=== PATIENT | male | born 1945 | race Caucasian/White ===

== ENCOUNTER 2019-02-06 20:34 | Emergency (ER) | payer OTHER ==
[2019-02-06 20:44] VITALS: RESP 18
[2019-02-06] MEDS ORDERED: MORPHINE SULFATE 4 MG/ML SYRINGE IVP STA ×2 (21:01→22:16)
[2019-02-06] MEDS ORDERED: SODIUM CHLORIDE 0.9% 1,000 ML IV ONE (21:01)
[2019-02-06] MEDS ORDERED: SODIUM CHLORIDE 0.9% 1,000 ML IV SCH (21:15)
--- NOTE | 2019-02-06 21:19 | ED ---
Abdominal Pain HPI - General Chief Complaint: Abdominal Pain Stated Complaint: Abd pain Time Seen by Provider: 02/06/19 20:52 Source: patient, family Mode of arrival: ambulatory Limitations: no limitations - History of Present Illness Initial Comments: Patient is a 73-year-old male presenting for abdominal pain. The patient states that he had a Whipple procedure about 6 years ago secondary to pancreatic Cancer. He started having diffuse abdominal tenderness yesterday which is been constant. He is unable to describe and states that there is no radiation or modifying factors. Had 2 episodes of nausea and vomiting today but no diarrhea. He also denies any fevers or chills. He denies any urinary symptoms. - Related Data Previous Rx's Medication Instructions Recorded Morphine Sulfate 15 mg PO Q6H 3 Days #12 tab 02/07/19 Allergies Allergy/AdvReac Type Severity Reaction Status Date / Time codeine Allergy Swelling Verified 02/06/19 21:31 hydromorphone [From Dilaudid] Allergy Swelling Verified 02/06/19 21:31 Penicillins Allergy Swelling Verified 02/06/19 21:31 Review of Systems ROS Statement: Those systems with pertinent positive or pertinent negative responses have been documented in the HPI. Constitutional: Negative for chills, fatigue and fever. HENT: Negative for congestion. Respiratory: Negative for chest tightness, shortness of breath and wheezing. Negative for cough Cardiovascular: Negative for chest pain and palpitations. Gastrointestinal: Positive for abdominal pain. Negative for abdominal distention, diarrhea, positive for nausea and vomiting. Genitourinary: Negative for dysuria. Musculoskeletal: Negative for back pain, neck pain and neck stiffness. Skin: Negative for color change. Neurological: Negative for dizziness, speech difficulty, weakness and light- headedness. Psychiatric/Behavioral: Negative for agitation and confusion. Negative for anxiety ROS Other: All systems not noted in ROS Statement are negative. Past Medical History Past Medical History: Cancer Additional Past Medical History / Comment(s): Pancreatic CA History of Any Multi-Drug Resistant Organisms: None Reported Past Surgical History: Cholecystectomy, Hernia Repair Additional Past Surgical History / Comment(s): whipple surgery Past Psychological History: No Psychological Hx Reported Smoking Status: Current every day smoker Past Alcohol Use History: None Reported Past Drug Use History: Marijuana General Exam - General Exam Comments Initial Comments: Constitutional: Pt appears well-developed and well-nourished. No distress. Head: Normocephalic and atraumatic. Eyes: EOM are normal. Neck: Normal range of motion. Neck supple. Cardiovascular: Normal rate, regular rhythm, S1 normal, S2 normal and normal heart sounds. Exam reveals no gallop and no friction rub. No murmur heard. Pulmonary/Chest: Effort normal and breath sounds normal. No tachypnea and no b radypnea. No respiratory distress. No wheezes or rales noted. Abdominal: Soft. Bowel sounds are normal. Pt exhibits no shifting dullness, no distension, no pulsatile liver, no fluid wave, no abdominal bruit and no ascites. There is mild rigidity, no rebound, no guarding, no tenderness at McBurney's point and negative Gonzáles's sign. There is diffuse abdominal tenderness Musculoskeletal: Normal range of motion. Neurological: Pt is alert and oriented to person, place, and time. No cranial nerve deficit. Skin: Skin is warm and dry. No rash noted. Pt is not diaphoretic. No erythema. No pallor. Psychiatric: Pt has a normal mood and affect. Pt behavior is normal. Thought content normal. Limitations: no limitations Course Vital Signs 02/06/19 02/06/19 02/06/19 20:37 22:01 23:01 Temperature 98.0 F Pulse Rate 70 61 65 Respiratory 18 18 18 Rate Blood Pressure 127/89 190/103 152/98 O2 Sat by Pulse 96 100 97 Oximetry Medical Decision Making - Medical Decision Making Laboratory studies showed that there was no significant electrolyte derangements, leukocytosis and lactic acid was within normal limits. There is also no evidence of pancreatitis or transaminitis. CT of the abdomen was performed and showed pneumobilia of the left hepatic lobe and significantly distended fluid-filled stomach. There was nonspecific fluid-filled nondilated loops of small bowel but no evidence of mechanical obstruction. These results were discussed with the patient and the patient stated that he was very aware of his dilated stomach and that he has gastroparesis. He states that he has had this managed very specifically in the past with oral morphine given by his GI doctor. He states that this is the typical course for him. Nonetheless, observation was offered to the patient and he currently declined and stated that this is very routine for him and that he would like to be discharged. At the time of disposition, the patient was very well-appearing with vital signs within normal limits. There is no evidence of emergent pathology as well. Patient was counseled to return to emergency Department symptoms worsened and he stated that he would. - Lab Data Result diagrams: 02/06/19 21:23 02/06/19 21:23 Lab Results 02/06/19 02/06/19 02/06/19 Range/Units 21:23 21:23 21:23 WBC 8.5 (3.8-10.6) k/uL RBC 4.56 (4.30-5.90) m/uL Hgb 13.6 (13.0-17.5) gm/dL Hct 42.0 (39.0-53.0) % MCV 92.1 (80.0-100.0) fL MCH 29.7 (25.0-35.0) pg MCHC 32.3 (31.0-37.0) g/dL RDW 13.7 (11.5-15.5) % Plt Count 258 (150-450) k/uL Neutrophils % 78 % Lymphocytes % 13 % Monocytes % 6 % Eosinophils % 1 % Basophils % 0 % Neutrophils # 6.6 (1.3-7.7) k/uL Lymphocytes # 1.1 (1.0-4.8) k/uL Monocytes # 0.5 (0-1.0) k/uL Eosinophils # 0.1 (0-0.7) k/uL Basophils # 0.0 (0-0.2) k/uL Sodium 139 (137-145) mmol/L Potassium 4.7 (3.5-5.1) mmol/L Chloride 96 L (98-107) mmol/L Carbon Dioxide 34 H (22-30) mmol/L Anion Gap 9 mmol/L BUN 20 (9-20) mg/dL Creatinine 1.19 (0.66-1.25) mg/dL Est GFR (CKD-EPI)AfAm 71 (>60 ml/min/1.73 sqM) Est GFR (CKD-EPI)NonAf 61 (>60 ml/min/1.73 sqM) Glucose 109 H (74-99) mg/dL Plasma Lactic Acid Darian 1.3 (0.7-2.0) mmol/L Calcium 10.1 (8.4-10.2) mg/dL Magnesium 2.2 (1.6-2.3) mg/dL Total Bilirubin 0.7 (0.2-1.3) mg/dL AST 34 (17-59) U/L ALT 36 (21-72) U/L Alkaline Phosphatase 178 H (38-126) U/L Total Protein 7.1 (6.3-8.2) g/dL Albumin 4.4 (3.5-5.0) g/dL Lipase 13 L (23-300) U/L - EKG Data EKG Comments: EKG shows normal sinus rhythm with a rate of 64 bpm, DE interval 124, QRS 102, QTC 447. There are no significant ST depressions or elevations noted. Disposition Clinical Impression: Gastric distention, Abdominal pain Disposition: HOME SELF-CARE Condition: Good Instructions (If sedation given, give patient instructions): Abdominal Pain (ED) Prescriptions: Morphine Sulfate 15 mg PO Q6H 3 Days #12 tab Is patient prescribed a controlled substance at d/c from ED?: Yes When asked, does pt state using other controlled substances?: No If prescribed controlled substance>3 days was MAPS reviewed?: Prescribed <3 Days If opioid is for acute pain is fill amount 7 days or less?: Yes If Rx opioid, was Start Talking consent form obtained?: Yes Referrals: None,Stated [Primary Care Provider] - 1-2 days Time of Disposition: 00:00
[2019-02-06 21:45] LABS: Basophils % (A) 0 %; Eosinophils # (A) 0.1 k/uL (0-0.7); Eosinophils % (A) 1 %; HGB 13.6 gm/dL (13.0-17.5); Lymphocytes # (A) 1.1 k/uL (1.0-4.8); Lymphocytes % (A) 13 %; MCH 29.7 pg (25.0-35.0); MCHC 32.3 g/dL (31.0-37.0); MCV 92.1 fL (80.0-100.0); Mean Platelet Volume 6.9; Monocytes # (A) 0.5 k/uL (0-1.0); Monocytes % (A) 6 %; Neutrophils # (A) 6.6 k/uL (1.3-7.7); Neutrophils % (A) 78 %; Platelet Count 258 k/uL (150-450); RBC 4.56 m/uL (4.30-5.90); RDW 13.7 % (11.5-15.5); WBC 8.5 k/uL (3.8-10.6)
[2019-02-06 22:07] LABS: Albumin 4.4 g/dL (3.5-5.0); Calcium 10.1 mg/dL (8.4-10.2); Magnesium 2.2 mg/dL (1.6-2.3); Potassium 4.7 mmol/L (3.5-5.1); Total Bilirubin 0.7 mg/dL (0.2-1.3); Total Protein 7.1 g/dL (6.3-8.2)
[2019-02-06 23:02] VITALS: PULSE 65
--- NOTE | 2019-02-06 23:42 | CT ---
EXAM: CT Abdomen and Pelvis With Intravenous Contrast CLINICAL HISTORY: ITS.REASON CT Reason: abdominal pain history of pancreatic cancer TECHNIQUE: Axial computed tomography images of the abdomen and pelvis with intravenous contrast. CTDI is 14.5 mGy and DLP is 630 mGy-cm. This CT exam was performed using one or more of the following dose reduction techniques: automated exposure control, adjustment of the mA and/or kV according to patient size, and/or use of iterative reconstruction technique. COMPARISON: No relevant prior studies available. FINDINGS: Limitations: Limited exam given lack of intraperitoneal fat and oral contrast. Lung bases: Unremarkable. No mass. No consolidation. ABDOMEN: Liver: Unremarkable. No mass. Gallbladder and bile ducts: Pneumobilia in the left hepatic lobe. No calcified stones. No ductal dilation. Pancreas: Evidence of prior Whipple procedure. There is gas in the region of the jere hepatis and pancreatic body. Pancreatic duct dilation as well as pancreatic calcifications. Spleen: Unremarkable. No splenomegaly. Adrenals: Unremarkable. No mass. Kidneys and ureters: Unremarkable. No solid mass. No hydronephrosis. Stomach and bowel: Significant only distended stomach. There are nondilated fluid-filled loops of small bowel. Moderate stool throughout the colon. No mucosal thickening. PELVIS: Appendix: No findings to suggest acute appendicitis. Bladder: Unremarkable. No mass. Reproductive: Unremarkable as visualized. ABDOMEN and PELVIS: Intraperitoneal space: Small amount of free fluid in the pelvic cul-de- sac. Bones/joints: No acute fracture. No dislocation. Soft tissues: See above. Vasculature: Extensive atherosclerosis of the abdominal aorta and its major branches. The abdominal aorta is ectatic. Lymph nodes: Unremarkable. No enlarged lymph nodes. IMPRESSION: Evidence of a prior Whipple procedure. There is pneumobilia in the left hepatic lobe, N/V region of the jere hepatis, and pancreatic body. The residual pancreatic tissue demonstrates duct dilation and parenchymal calcification. Diffuse mesenteric edema. Significantly distended fluid-filled stomach. Additionally, there are nonspecific fluid-filled nondilated loops of small bowel. Consider gastroenteritis. No evidence of a mechanical obstruction.
[2019-02-07 00:16] VITALS: BP 159/99; TEMP 99.7
== END 2019-02-07 00:14 | disposition home or self-care (01) ==
LOC: EC 20:34
DX: R14.0 Abdominal distension (gaseous) (principal); R10.84 Generalized abdominal pain; R11.2 Nausea with vomiting, unspecified; K76.89 Other specified diseases of liver; F17.200 Nicotine dependence, unspecified, uncomplicated; Z88.0 Allergy status to penicillin; Z88.5 Allergy status to narcotic agent; Z85.07 Personal history of malignant neoplasm of pancreas; Z87.19 Personal history of other diseases of the digestive system; Z90.49 Acquired absence of other specified parts of digestive tract; Z53.20 Procedure and treatment not carried out because of patient's decision for unspecified reasons
CPT/HCPCS: 99284; 96374; 96376; 96361 ×3; 36415; 93005; 80053; 83605; 83690; 83735; 85025; 74177; J2270; Q9967

== ENCOUNTER 2019-10-02 11:55 | Inpatient (IN) | payer MEDICARE, OTHER ==
[2019-10-02] MEDS ORDERED: SODIUM CHLORIDE 0.9% 1,000 ML IV STA (12:03)
[2019-10-02] MEDS ORDERED: MORPHINE SULFATE 4 MG/ML SYRINGE IV STA (12:03)
[2019-10-02] MEDS ORDERED: ONDANSETRON 4 MG/2 ML VIAL IVP STA (12:03)
[2019-10-02] MEDS ORDERED: PANTOPRAZOLE 40 MG/10 ML VIAL IVP STA (12:04)
--- NOTE | 2019-10-02 12:22 | ED ---
General Adult HPI - General Chief complaint: GI Bleed Stated complaint: Vomiting blood Time Seen by Provider: 10/02/19 11:58 Source: patient, EMS, RN notes reviewed, old records reviewed Mode of arrival: EMS Limitations: no limitations - History of Present Illness Initial comments: 74-year-old male history of pancreatic cancer and with the procedure presenting with 4 days of nausea vomiting and loose stools. Patient states he has episodes similar to this several times a year since his surgery. He reports multiple episodes of vomiting and that he had some dark coffee-ground emesis associated with several episodes of vomiting. Denies melena. He has intermittent crampy abdominal pain which is generalized. He states all symptoms are typical of the chronic issues he's had for several years. Denies fever or chills. Denies chest pain or dyspnea. - Related Data Previous Rx's Medication Instructions Recorded Morphine Sulfate 15 mg PO Q6H 3 Days #12 tab 02/07/19 Allergies Allergy/AdvReac Type Severity Reaction Status Date / Time codeine Allergy Swelling Verified 10/02/19 12:04 hydromorphone [From Dilaudid] Allergy Swelling Verified 10/02/19 12:04 Penicillins Allergy Swelling Verified 10/02/19 12:04 Review of Systems ROS Statement: Those systems with pertinent positive or pertinent negative responses have been documented in the HPI. ROS Other: All systems not noted in ROS Statement are negative. Past Medical History Past Medical History: Cancer Additional Past Medical History / Comment(s): Pancreatic CA History of Any Multi-Drug Resistant Organisms: None Reported Past Surgical History: Cholecystectomy, Hernia Repair Additional Past Surgical History / Comment(s): whipple surgery Past Psychological History: No Psychological Hx Reported Smoking Status: Current every day smoker Past Alcohol Use History: None Reported Past Drug Use History: Marijuana General Exam Limitations: no limitations General appearance: alert, in no apparent distress Head exam: Present: atraumatic, normocephalic Eye exam: Present: normal appearance, PERRL ENT exam: Present: mucous membranes dry Neck exam: Present: normal inspection. Absent: tenderness, meningismus Respiratory exam: Present: normal lung sounds bilaterally. Absent: respiratory distress Cardiovascular Exam: Present: regular rate, normal rhythm GI/Abdominal exam: Present: soft, tenderness, guarding. Absent: distended, rebound Extremities exam: Present: normal inspection, normal capillary refill. Absent: pedal edema Neurological exam: Present: alert, oriented X3 Psychiatric exam: Present: normal affect, normal mood Skin exam: Present: warm, dry, intact. Absent: cyanosis, diaphoretic Course Vital Signs 10/02/19 12:05 Temperature 96.9 F L Pulse Rate 60 Respiratory 18 Rate Blood Pressure 134/78 O2 Sat by Pulse 99 Oximetry EKG Findings - EKG Comments: EKG Findings:: EKG: Normal sinus rhythm, rate of 61, DE interval 114, QRS duration 84, QTC 444, no ST segment elevation Medical Decision Making - Medical Decision Making 74-year-old male with nausea vomiting, abdominal pain and concern for hematemesis. Patient has stable vitals, he has a tender abdomen specifically in the epigastrium. Given his previous surgical history, CT is performed, shows i nflammation in the gastric antrum, concern for peptic ulcer disease and inflammation. There is pneumobilia which is stable from previous CT. Patient's started on Protonix, and given symptomatic treatment. He has a stable hemoglobin. He has creatinine 1.72 which is elevated likely secondary to de hydration. He will be admitted for continued treatment of upper gastrointestinal bleed, intractable nausea vomiting, and symptomatic treatment. Case is discussed with Dr. Monae who will accept admission. GI placed on consult. - Lab Data Result diagrams: 10/02/19 12:11 10/02/19 12:11 Lab Results 10/02/19 10/02/19 10/02/19 Range/Units 12:11 12:11 12:11 WBC 5.8 (3.8-10.6) k/uL RBC 4.40 (4.30-5.90) m/uL Hgb 13.7 (13.0-17.5) gm/dL Hct 40.5 (39.0-53.0) % MCV 92.0 (80.0-100.0) fL MCH 31.1 (25.0-35.0) pg MCHC 33.7 (31.0-37.0) g/dL RDW 13.1 (11.5-15.5) % Plt Count 186 (150-450) k/uL Neutrophils % 82 % Lymphocytes % 10 % Monocytes % 6 % Eosinophils % 1 % Basophils % 0 % Neutrophils # 4.7 (1.3-7.7) k/uL Lymphocytes # 0.6 L (1.0-4.8) k/uL Monocytes # 0.4 (0-1.0) k/uL Eosinophils # 0.1 (0-0.7) k/uL Basophils # 0.0 (0-0.2) k/uL PT (9.0-12.0) sec INR (<1.2) APTT (22.0-30.0) sec Sodium 136 L (137-145) mmol/L Potassium 4.5 (3.5-5.1) mmol/L Chloride 99 (98-107) mmol/L Carbon Dioxide 23 (22-30) mmol/L Anion Gap 14 mmol/L BUN 30 H (9-20) mg/dL Creatinine 1.72 H (0.66-1.25) mg/dL Est GFR (CKD-EPI)AfAm 45 (>60 ml/min/1.73 sqM) Est GFR (CKD-EPI)NonAf 39 (>60 ml/min/1.73 sqM) Glucose 140 H (74-99) mg/dL Plasma Lactic Acid Darian (0.7-2.0) mmol/L Calcium 9.4 (8.4-10.2) mg/dL Total Bilirubin 0.9 (0.2-1.3) mg/dL AST 30 (17-59) U/L ALT 18 (4-49) U/L Alkaline Phosphatase 140 H (38-126) U/L Total Protein 7.0 (6.3-8.2) g/dL Albumin 4.2 (3.5-5.0) g/dL Amylase 31 (30-110) U/L Lipase 13 L (23-300) U/L Blood Type A Negative Blood Type Recheck No Previous Record Bld Type Recheck Status CABO Indicated Antibody Screen NEGATIVE Spec Expiration Date 10/05/2019 - 231010/02/19 10/02/19 Range/Units 12:11 12:11 WBC (3.8-10.6) k/uL RBC (4.30-5.90) m/uL Hgb (13.0-17.5) gm/dL Hct (39.0-53.0) % MCV (80.0-100.0) fL MCH (25.0-35.0) pg MCHC (31.0-37.0) g/dL RDW (11.5-15.5) % Plt Count (150-450) k/uL Neutrophils % % Lymphocytes % % Monocytes % % Eosinophils % % Basophils % % Neutrophils # (1.3-7.7) k/uL Lymphocytes # (1.0-4.8) k/uL Monocytes # (0-1.0) k/uL Eosinophils # (0-0.7) k/uL Basophils # (0-0.2) k/uL PT 11.2 (9.0-12.0) sec INR 1.1 (<1.2) APTT 24.3 (22.0-30.0) sec Sodium (137-145) mmol/L Potassium (3.5-5.1) mmol/L Chloride (98-107) mmol/L Carbon Dioxide (22-30) mmol/L Anion Gap mmol/L BUN (9-20) mg/dL Creatinine (0.66-1.25) mg/dL Est GFR (CKD-EPI)AfAm (>60 ml/min/1.73 sqM) Est GFR (CKD-EPI)NonAf (>60 ml/min/1.73 sqM) Glucose (74-99) mg/dL Plasma Lactic Acid Darian 1.9 (0.7-2.0) mmol/L Calcium (8.4-10.2) mg/dL Total Bilirubin (0.2-1.3) mg/dL AST (17-59) U/L ALT (4-49) U/L Alkaline Phosphatase (38-126) U/L Total Protein (6.3-8.2) g/dL Albumin (3.5-5.0) g/dL Amylase (30-110) U/L Lipase (23-300) U/L Blood Type Blood Type Recheck Bld Type Recheck Status Antibody Screen Spec Expiration Date Disposition Clinical Impression: Gastritis, Peptic ulcer, MIRNA (acute kidney injury) Disposition: [facility] Condition: Stable Is patient prescribed a controlled substance at d/c from ED?: No Referrals: [facility]inic [Primary Care Provider] - 1-2 days Decision to Admit Reason: Admit from EC Decision Date: 10/02/19 Decision Time: 13:53
[2019-10-02 12:27] LABS: Basophils % (A) 0 %; Eosinophils # (A) 0.1 k/uL (0-0.7); Eosinophils % (A) 1 %; HCT 40.5 % (39.0-53.0); HGB 13.7 gm/dL (13.0-17.5); Lymphocytes # (A) 0.6 k/uL (1.0-4.8); Lymphocytes % (A) 10 %; MCH 31.1 pg (25.0-35.0); MCHC 33.7 g/dL (31.0-37.0); Mean Platelet Volume 7.6; Monocytes # (A) 0.4 k/uL (0-1.0); Monocytes % (A) 6 %; Neutrophils # (A) 4.7 k/uL (1.3-7.7); Neutrophils % (A) 82 %; Platelet Count 186 k/uL (150-450); RDW 13.1 % (11.5-15.5); WBC 5.8 k/uL (3.8-10.6)
[2019-10-02 12:31] LABS: Albumin 4.2 g/dL (3.5-5.0); Calcium 9.4 mg/dL (8.4-10.2); Potassium 4.5 mmol/L (3.5-5.1); Total Bilirubin 0.9 mg/dL (0.2-1.3)
[2019-10-02 12:32] LABS: INR 1.1 (<1.2); Partial Thromboplastin Time 24.3 sec (22.0-30.0); Prothrombin Time 11.2 sec (9.0-12.0)
--- NOTE | 2019-10-02 13:34 | CT ---
EXAMINATION TYPE: CT abdomen pelvis wo con DATE OF EXAM: 10/02/2019 COMPARISON: 02/06/2019 HISTORY: vOMITTING BLOOD CT DLP: 324.1 mGycm Automated exposure control for dose reduction was used. TECHNIQUE: Helical acquisition of images was performed from the lung bases through the pelvis. FINDINGS: LUNG BASES: To 3 mm pulmonary nodules in the anterior segment of the right upper lobe. Trace of peric ardial fluid is noted.. LIVER/GB: Air within the liver is stable from the prior exam and suggestive of pneumobilia. Correlate for previous cholecystectomy. PANCREAS: Findings suggest prior Whipple procedure. Residual pancreatic calcifications are seen as we ll as duct dilation some are the prior study.. SPLEEN: No significant abnormality is seen. ADRENALS: Nonspecific thickening of the adrenal glands greater on the left.. KIDNEYS: No hydronephrosis. Punctate hilar calcifications could be vascular although tiny renal stone excluded.. ADENOPATHY: Limited assessment for adenopathy due to reduced amount of intraperitoneal fat and lack of contrast. OSSEOUS STRUCTURES: Hypertrophic and degenerative changes spine noted. Chronic rib fractures on the left incidentally noted. Hypertrophic and degenerative change of the spine. Abnormal attenuation the femoral heads can be associated with early osteonecrosis. There is abnormal appearance including ero sive bony inferior endplate of L1. This could been the basis of a inferior endplate compression fract ure or acute Schmorl's node. Infectious etiology including osteomyelitis or discitis and metastasis i n the differential diagnosis. This is new from the prior CT scan. Suspect multilevel canal stenosis w ith disc bulging and hypertrophic changes of the vertebral column. BOWEL: The stomach is markedly distended and appears to contain debris some of which is hyperdense m ay represent hemorrhage. Wall thickening near the gastric antrum suspected. Cannot exclude a gastric outlet obstruction. There appears to be inflammatory change near the region of the gastroduodenal gabriele ction. Correlate for mass versus peptic ulcer disease. Overall bowel gas pattern nonspecific. OTHER: Vascular calcifications are seen and there is ectasia of the abdominal aorta with a maximal di mension of 2.9 cm. Cannot exclude a degree of omental thickening on image 30. IMPRESSION: 1. Gastric distention with thickening of the gastric wall particularly at the level gastric antrum an d proximal duodenum. Correlate for peptic ulcer disease. Mild amount of induration of the fat sugge sting acute inflammatory change. Neoplastic process not excluded. Hyperdensity within the stomach may represent retained debris versus a small amount of hemorrhage. 2. There is stable appearance of air within the left lobe of the liver most likely on the basis of pn eumobilia. 3. There is been interval development of a deformity involving the inferior endplate of L1 relative t o the exam of 02/06/2019. This demonstrates possible sclerosis or erosion. Differential diagnosis would include recent Schmorl's node, atypical inferior endplate compression fracture and osteomyelitis wit h discitis. Recommend follow-up MRI. 4. Sclerosis involving the head of the femur bilaterally is highly suggestive of osteonecrosis. 5. Correlate for previous Whipple procedure. 6. Assessment for adenopathy is nondiagnostic due to reduced amount of intraperitoneal fat and lack o f oral and IV contrast..
[2019-10-02] MEDS ORDERED: ONDANSETRON 4 MG/2 ML VIAL IVP PRN (13:50)
[2019-10-02] MEDS ORDERED: MORPHINE SULFATE 4 MG/ML SYRINGE IV PRN (13:50)
[2019-10-02] MEDS ORDERED: NALOXONE 0.4 MG/ML 1 ML VIAL IV PRN (13:50)
[2019-10-02] MEDS ORDERED: LIDOCAINE 5% PATCH TOPICAL PRN (18:50)
[2019-10-02] MEDS ORDERED: BACLOFEN 10 MG TAB PO PRN (18:50)
[2019-10-02] MEDS ORDERED: ACETAMINOPHEN TAB 500 MG TAB PO PRN (18:52)
[2019-10-02] MEDS ORDERED: ALPRAZolam 0.25 MG TAB PO PRN (18:52)
[2019-10-02] MEDS ORDERED: TEMAZEPAM 15 MG CAP PO PRN (18:52)
[2019-10-02] MEDS: PRAZOSIN 1 MG CAP PO SCH (20:13)
[2019-10-02] MEDS: SODIUM CHLORIDE 0.9% 1,000 ML IV SCH (20:13)
[2019-10-02 20:34] LABS: Albumin 3.6 g/dL (3.5-5.0); Calcium 8.8 mg/dL (8.4-10.2); Potassium 4.4 mmol/L (3.5-5.1); Total Bilirubin 0.8 mg/dL (0.2-1.3); Total Protein 6.1 g/dL (6.3-8.2)
[2019-10-02] MEDS: PANTOPRAZOLE 40 MG/10 ML VIAL IVP SCH (20:56)
--- NOTE | 2019-10-02 22:29 | HP ---
HISTORY AND PHYSICAL DATE OF SERVICE: 10/02/2019 CHIEF COMPLAINT: GI bleed. HISTORY OF PRESENT ILLNESS: This 74-year-old gentleman with a past medical history of multiple medical problems including a history of pancreatic cancer, history of cholecystectomy, history of hernia repair, being followed by Dr. Chandra in the outpatient was admitted with 4 days of nausea, vomiting, and loose stools. The patient also had coffee-ground emesis and the patient had Whipple's procedure about 5 years ago. Because of multiple symptomatology, patient came to [facility] and was admitted for further evaluation and treatment. Patient was found to be dehydrated with features of renal failure 1.72. The patient also underwent a CT scan of the abdomen and pelvis which was done in the ER which showed gastric distention and thickening, possibly peptic ulcer disease and also stable appearance of the left lobe of the liver with pneumobilia, deformity involving the L1 was noted and multiple other findings also noted. There is no history of fever, rigors or chills. No history of headache, loss of consciousness, seizures. PAST MEDICAL HISTORY: History of pancreatic cancer, Whipple's procedure, cholecystectomy, hernia repair. MEDICATIONS ARE: 1. Lamictal 200 mg p.o. daily. 2. Effexor XR 150 mg p.o. daily. 3. Sildenafil 100 mg daily p.r.n. 4. Prazosin 4 mg q.h.s. 5. Morphine sulfate 50 mg q.6 p.r.n. 6. Creon 120,000 p.o. q.a.c. and q.h.s. 7. Lidoderm. 8. Lioresal 10 mg p.o. t.i.d. p.r.n. ALLERGIES: CODEINE, DILAUDID, PENICILLIN. FAMILY HISTORY: No history of heart disease, strokes in the family. SOCIAL HISTORY: History of smoking. History of THC. REVIEW OF SYSTEMS: ENT diminished vision. Diminished hearing. CARDIOVASCULAR: No angina or palpitations. RESPIRATION: No cough. GI as mentioned earlier. : No dysuria. CENTRAL NERVOUS SYSTEM: No numbness or weakness. ALLERGY/IMMUNOLOGY: No asthma or hayfever. MUSCULOSKELETAL as mentioned earlier. HEMATOLOGY/ONCOLOGY: No history of anemia. NEUROLOGY as mentioned earlier. ENDOCRINE: No history of diabetes or hypothyroidism. CONSTITUTIONAL: As mentioned earlier. DERMATOLOGY negative. RHEUMATOLOGY: Negative. PSYCHIATRIC: As mentioned earlier. PHYSICAL EXAMINATION: Alert and oriented x3. Pulse 60. Blood pressure 133/78, respiration 18, temperature 97.9, pulse ox 98% on room air. HEENT: Conjunctivae normal. Oral mucosa dry. NECK is no jugular venous distention. No carotid bruit. No lymph node enlargement. Cardiovascular system: S1, S2 muffled. No S3, no S4. RESPIRATORY: Breath sounds diminished in the bases. A few scattered rhonchi. No crackles. ABDOMEN: Soft. Mild diffuse discomfort on palpation. No guarding. No rigidity. There is no mass palpable. LEGS: No edema. No swelling. Nervous system: Higher functions as mentioned earlier. Moves all four limbs. No focal motor or sensory deficits. Lymphatics: No lymph nodes palpable in the neck, axillae or groin. SKIN: No ulcers. No rashes. No bleeding. JOINTS: No active deforming arthropathy. LABS: CBC within normal limits. Sodium 130. Potassium 4.2, creatinine 1.7. Other labs are noted. ASSESSMENT: 1. Incessant nausea, vomiting and diarrhea, possible acute gastroenteritis. 2. Possible acute gastritis rule out peptic ulcer disease. 3. Increased creatinine with acute renal failure possible acute tubular necrosis with prerenal renal failure. 4. History of pancreatic cancer with Whipple's procedure. 5. Pneumobilia in the CT scan of the abdomen. 6. L1 compression fracture. 7. Possible osteonecrosis of the femur on the CT scan. 8. Severe protein calorie malnutrition with BMI of 16.4. 9. History of nicotine dependence and THC. 10.FULL CODE. RECOMMENDATIONS AND DISCUSSION: In this 74-year-old gentleman who presented with multiple complex medical issues, continue current medications. IV fluids. Monitor creatinine closely. Resume the home medications. Proton pump inhibitors. Consult Dr. Daly for possible endoscopes. Otherwise symptomatic treatment of pain also provided. Prognosis guarded because of multiple complex medical issues. Further recommendations to follow. A copy of dictation being forwarded to Dr. Chandra who is the primary physician. SUGAR / CHARLY: [id number] /
[2019-10-03 01:59] LABS: Appearance,Urine Clear (Clear); Bilirubin,Urine Negative (Negative); Blood,Urine Negative (Negative); Color,Urine Yellow; Glucose,Urine (UA) Negative (Negative); Ketones,Urine Negative (Negative); Leukocyte Esterase,Urine Negative (Negative); Nitrite,Urine Negative (Negative); Protein,Urine Negative (Negative); Specific Gravity,Urine 1.008 (1.001-1.035); Urobilinogen,Urine <2.0 mg/dL (<2.0)
[2019-10-03 02:12] LABS: Amphetamine Screen,Urine Not Detected (NotDetected); Barbiturate Screen,Urine Not Detected (NotDetected); Benzodiazepines Screen,Urine Detected (NotDetected); Cocaine Screen,Urine Not Detected (NotDetected); Methadone Screen, Urine Not Detected (NotDetected); Opiate Screen,Urine Detected (NotDetected); Oxycodone Screen, Urine Not Detected (NotDetected); Phencyclidine Screen,Urine Not Detected (NotDetected); Tricyclic Antidepressant,Urine Not Detected (NotDetected); Urn Cannabinoid Scrn Detected (NotDetected)
[2019-10-03] MEDS: SODIUM CHLORIDE 0.9% 1,000 ML IV SCH ×2 (03:38→08:07)
[2019-10-03] MEDS: NICOTINE 14MG/24HR PATCH TRANSDERM SCH (07:56)
[2019-10-03] MEDS: PANTOPRAZOLE 40 MG/10 ML VIAL IVP SCH ×2 (08:08→20:28)
[2019-10-03] MEDS: VENLAFAXINE HCL ER 150 MG CAP PO SCH (08:09)
[2019-10-03] MEDS: lamoTRIgine 100 MG TAB PO SCH (08:09)
[2019-10-03 09:00] LABS: Basophils % (A) 0 %; Eosinophils # (A) 0.1 k/uL (0-0.7); Eosinophils % (A) 2 %; HCT 35.2 % (39.0-53.0); HGB 11.8 gm/dL (13.0-17.5); Lymphocytes # (A) 0.9 k/uL (1.0-4.8); Lymphocytes % (A) 21 %; MCH 31.4 pg (25.0-35.0); MCHC 33.6 g/dL (31.0-37.0); MCV 93.3 fL (80.0-100.0); Mean Platelet Volume 7.5; Monocytes # (A) 0.3 k/uL (0-1.0); Monocytes % (A) 7 %; Neutrophils # (A) 2.9 k/uL (1.3-7.7); Neutrophils % (A) 68 %; Platelet Count 167 k/uL (150-450); RBC 3.77 m/uL (4.30-5.90); RDW 12.9 % (11.5-15.5); WBC 4.3 k/uL (3.8-10.6)
[2019-10-03 09:14] LABS: Calcium 8.6 mg/dL (8.4-10.2); Potassium 4.6 mmol/L (3.5-5.1)
[2019-10-03] MEDS: DEXTROSE 5%-0.9% NACL 1,000 ML IV SCH (10:46)
[2019-10-03 15:12] VITALS: BMI 17.1
[2019-10-03] MEDS: PRAZOSIN 1 MG CAP PO SCH (20:28)
--- NOTE | 2019-10-04 01:29 | PN ---
PROGRESS NOTE DATE OF SERVICE: 10/03/2019 This 74-year-old gentleman admitted with incessant vomiting and upper GI bleeding is closely monitored. The patient refused upper GI endoscopy. Hemoglobin is 11.8 at this time. No active bleeding is noted. No chest pain. No palpitations. No fever. PHYSICAL EXAMINATION: Alert and oriented x3. Pulse 60, blood pressure 142/76, respiration 18, temperature 98.1, pulse ox 100% on room air. HEENT: Conjunctivae normal. NECK: No jugular venous distention. CARDIOVASCULAR SYSTEM: S1, S2 muffled. RESPIRATORY SYSTEM: Breath sounds diminished at the bases. A few scattered rhonchi and crackles. ABDOMEN: Soft, non-tender. LEGS: No edema. No swelling. NERVOUS SYSTEM: No focal deficit. LABS: WBC 4.3, hemoglobin 11.8, creatinine is 1.57. ASSESSMENT: 1. Intractable nausea and vomiting, diarrhea, with possible acute gastroenteritis, possible upper gastrointestinal bleeding with possible peptic ulcer disease. 2. Increased creatinine with acute renal failure with possible acute tubular necrosis with prerenal renal failure. 3. History of pancreatic cancer with Whipple procedure in 2013. 4. History of pneumobilia on the CT scan of the abdomen. 5. L1 compression fracture. 6. Possible osteonecrosis of the femur on the CT scan. 7. Severe protein-calorie malnutrition with a body mass index of 16.4. 8. History of nicotine dependency with tetrahydrocannabinol. 9. FULL CODE. RECOMMENDATIONS AND DISCUSSION: I recommend to continue current medications, continue with the monitoring, symptomatic treatment. Otherwise at this time I recommend continuing with the current medication, continue with symptomatic treatment. Otherwise, monitor creatinine closely. Continue the rest of medication. Increase ambulation. Guarded prognosis. Further recommendations to follow. Advance the diet. MMODL / IJN: [id number] /
[2019-10-04] MEDS: DEXTROSE 5%-0.9% NACL 1,000 ML IV SCH ×2 (01:51→13:24)
[2019-10-04 04:53] VITALS: BP 129/79; PULSE 52; RESP 16; TEMP 97.4
--- NOTE | 2019-10-04 06:53 | P.CONS ---
History of Present Illness - Reason for Consult Consult date: 10/03/19 Nausea and vomiting, coffee-ground emesis Requesting physician: Coleen Monae - Chief Complaint Nausea and vomiting, dehydration - History of Present Illness 74-year-old male with past medical history significant for multiple medical comorbidities including prior diagnosis of pancreatic cancer status post Whipple in 2012 as well as combined chemoradiation therapy per the patient, as well as prior cholecystectomy and hernia repair who presented to the hospital with compl aints of nausea, vomiting and dehydration. The patient reports he has had multiple similar episodes of symptoms in the past. He reports intermittent episodes of intractable nausea and vomiting which have required hospitalization in the past. He reports that usually with fluid hydration and pain control symptoms will improve and the patient is able to be discharged home. He treats symptoms at home with by mouth morphine which he reports is able to control pain associated with nausea and vomiting and allow the episodes to past. She reports she has undergone numerous endoscopies stating that he has been scoped at least 11 times in the past due to the symptoms as well as and monitoring after his pancreatic cancer treatment. He believes his last EGD was several years ago and he did have ulcers at that time. On current presentation he had approximately 2-3 days of intractable nausea and vomiting. She noticed some dark emesis with the episode. Denies any NSAID use. Hemoglobin initially on presentation 13.7 and subsequently found to be 11.8. Computed tomography scan of the abdomen with multiple findings as well as gastric distention and thickening possibly related to peptic ulcer disease. Denies any fevers, chills or recent weight loss. Review of Systems REVIEW OF SYSTEMS: CONSTITUTIONAL: Denies any fevers, chills, weight change or fatigue. CARDIOVASCULAR: Denies any chest pain, palpitations high or low blood pressures RESPIRATORY: Denies any shortness of breath, hemoptysis or cough. GENITOURINARY: No dysuria or hematuria. MUSCULOSKELETAL: No weakness reported. SKIN: Denies any new rashes or lesions, jaundice or pallor. PSYCHIATRIC: Denies any depression or anxiety. NEUROLOGY: Denies headache, denies any new focal deficits. EARS/NOSE/THROAT: No recent hearing change, congestion, nasal discharge or sore throat. EYES: No pain in eyes, discharge or change in vision. GASTROINTESTINAL: As per HPI. Past Medical History Past Medical History: Cancer Additional Past Medical History / Comment(s): Pancreatic CA, hernia, History of Any Multi-Drug Resistant Organisms: None Reported Past Surgical History: Cholecystectomy, Hernia Repair Additional Past Surgical History / Comment(s): Whipple surgery Past Anesthesia/Blood Transfusion Reactions: Previous Problems w/ Anesthesia Additional Past Anesthesia/Blood Transfusion Reaction / Comm: Aggression and agitation post op. Past Psychological History: Anxiety, Depression, PTSD Additional Psychological History / Comment(s): Mood swings, Smoking Status: Current every day smoker Past Alcohol Use History: Occasional Additional Past Alcohol Use History / Comment(s): 1/2 PPD. Drinks occassionally 2 beers Past Drug Use History: Marijuana Additional Drug Use History / Comment(s): Daily at night to help sleep. - Past Family History Mother Additional Family Medical History / Comment(s): Schizophrenia Father Family Medical History: Cancer Additional Family Medical History / Comment(s): Colon cancer, since passed. Medications and Allergies Home Medications Medication Instructions Recorded Confirmed Type Baclofen [Lioresal] 10 mg PO TID PRN 10/02/19 10/02/19 History Lidocaine 5% Patch [Lidoderm] 1 patch TRANSDERM DAILY PRN 10/02/19 10/02/19 History Lipase/Protease/Amylase [Creon Dr 120,000 units PO ACHS 10/02/19 10/02/19 History 24,000 Units Capsule] Morphine Sulfate 15 mg PO Q6H PRN 10/02/19 10/02/19 History Prazosin HCl 4 mg PO HS 10/02/19 10/02/19 History Sildenafil Citrate 100 mg PO DAILY PRN 10/02/19 10/02/19 History Venlafaxine HCl [Effexor XR] 150 mg PO DAILY 10/02/19 10/02/19 History lamoTRIgine [LaMICtal] 200 mg PO DAILY 10/02/19 10/02/19 History Allergies Allergy/AdvReac Type Severity Reaction Status Date / Time codeine Allergy Swelling Verified 10/02/19 15:23 hydromorphone [From Dilaudid] Allergy Swelling Verified 10/02/19 15:23 Penicillins Allergy Swelling Verified 10/02/19 15:23 Physical Exam Vitals: Vital Signs Temp Pulse Resp BP Pulse Ox 10/03/19 20:23 98.1 F 60 18 142/76 100 10/03/19 11:45 97.7 F 63 17 132/73 97 10/03/19 04:39 97.4 F L 65 17 107/58 94 L Intake and Output 10/03/19 10/03/19 10/03/19 06:59 14:59 22:59 Intake Total 600 600 Output Total 900 Balance -300 600 Intake: Intake, IV Titration 600 600 Amount Sodium Chloride 0.9% 1, 600 600 000 ml @ 75 mls/hr IV . [id number] JOSE Rx#:[id number] Output: Urine 900 Other: Voiding Method Urinal Urinal Weight 49.487 kg On physical examination, patient appears comfortable in no apparent distress. HEAD: Normocephalic, atraumatic. EYES: No scleral icterus. No conjunctival injection. MOUTH: No lesions, tongue midline. NECK: Trachea midline, no gross abnormalities. CHEST: Clear to auscultation with no wheezing or rhonchi appreciated. HEART: S1-S2 appreciated. ABDOMEN: Soft, thin, nontender. Bowel sounds are positive. No organomegaly. No guarding or rigidity. EXTREMITIES: No pedal edema. SKIN: No rashes, no jaundice. NEUROLOGIC: Alert and oriented x3. Results CBC & Chem 7: 10/03/19 08:00 10/03/19 08:00 Labs: Abnormal Lab Results - Last 24 Hours (Table) 10/03/19 10/03/19 10/03/19 Range/Units 01:45 08:00 08:00 RBC 3.77 L (4.30-5.90) m/uL Hgb 11.8 L (13.0-17.5) gm/dL Hct 35.2 L (39.0-53.0) % Lymphocytes # 0.9 L (1.0-4.8) k/uL BUN 26 H (9-20) mg/dL Creatinine 1.57 H (0.66-1.25) mg/dL Glucose 66 L (74-99) mg/dL Urine Opiates Screen Detected H (NotDetected) U Benzodiazepines Scrn Detected H (NotDetected) U Marijuana (THC) Screen Detected H (NotDetected) CT scan - abdomen: report reviewed (Computed tomography scan of the abdomen with multiple findings including gastric distention and thickening with possibility of peptic ulcer disease.) Assessment and Plan (1) Intractable nausea and vomiting Narrative/Plan: 74-year-old male with multiple medical comorbidities including diagnosis of pancreatic cancer status post Whipple in 2013 with patient reporting that he receive chemotherapy and radiation therapy at that time, as well as prior history of peptic ulcer disease who presented to the hospital with intractable nausea and vomiting. He reports intermittently suffering symptoms of intractable nausea and vomiting since his surgery. He reports this is usually treated with pain control and fluid hydration and the patient is able to be discharged. On current presentation he reports multiple episodes of coffee- ground emesis with concern for GI bleed. Hemoglobin stable at 13.7 on presentation subsequently found to be 11.8. He denies any NSAID use at home. He does report prior history of peptic ulcer disease found on EGD several years ago. He also reports multiple endoscopies in the past. He denies any melanotic stool. No further nausea or vomiting after presentation. Computed tomography scan of the abdomen was concerning for gastric distention and all thickening concerning for peptic ulcer disease as well as other findings. Unknown etiology, with possibility of peptic ulcer disease, gastritis, postsurgical nicky marianela and adhesions as cause of patient's symptoms. Current Visit: Yes Status: Acute Code(s): R11.2 - NAUSEA WITH VOMITING, UNSPECIFIED SNOMED Code(s): 561442355 (2) History of pancreatic cancer Current Visit: Yes Status: Acute Code(s): Z85.07 - PERSONAL HISTORY OF MALIGNANT NEOPLASM OF PANCREAS SNOMED Code(s): 82361545067666 (3) History of peptic ulcer disease Current Visit: Yes Status: Acute Code(s): Z87.11 - PERSONAL HISTORY OF PEPTIC ULCER DISEASE SNOMED Code(s): 874165515 (4) Coffee ground emesis Current Visit: Yes Status: Acute Code(s): K92.0 - HEMATEMESIS SNOMED Code(s): 50452553 Plan: Supportive care Protonix 40 mg twice a day Continue to monitor hemoglobin and hematocrit and transfuse as needed Okay for liquid diet Extensive discussion with the patient about symptoms and findings on imaging and patient has been offered an EGD for further evaluation however the patient is concerned with being discharged home disease granddaughter, and states that he is been evaluated with multiple endoscopies in the past If patient desires to say will plan for EGD, otherwise patient instructed to present back to the hospital with any signs or symptoms of bleeding if discharged Thanks for allowing us to dissipate in the care of the patient we will follow
[2019-10-04 08:33] LABS: Calcium 8.5 mg/dL (8.4-10.2); Potassium 4.2 mmol/L (3.5-5.1)
[2019-10-04 08:40] LABS: Basophils % (A) 0 %; Eosinophils # (A) 0.1 k/uL (0-0.7); Eosinophils % (A) 2 %; Lymphocytes # (A) 0.8 k/uL (1.0-4.8); Lymphocytes % (A) 22 %; MCH 30.1 pg (25.0-35.0); MCHC 32.5 g/dL (31.0-37.0); MCV 92.7 fL (80.0-100.0); Mean Platelet Volume 7.6; Monocytes # (A) 0.3 k/uL (0-1.0); Monocytes % (A) 7 %; Neutrophils # (A) 2.4 k/uL (1.3-7.7); Neutrophils % (A) 66 %; Platelet Count 141 k/uL (150-450); RBC 3.67 m/uL (4.30-5.90); WBC 3.7 k/uL (3.8-10.6)
[2019-10-04] MEDS: lamoTRIgine 100 MG TAB PO SCH (09:26)
[2019-10-04] MEDS: VENLAFAXINE HCL ER 150 MG CAP PO SCH (09:27)
[2019-10-04] MEDS: NICOTINE 14MG/24HR PATCH TRANSDERM SCH (09:27)
[2019-10-04] MEDS: PANTOPRAZOLE 40 MG/10 ML VIAL IVP SCH (09:27)
[2019-10-04] MEDS ORDERED: LIDOCAINE 1% INJ 10MG/ML (20 ML MDV) ONE (15:26)
[2019-10-04] MEDS ORDERED: PROPOFOL 10 MG/ML 20 ML VIAL IV ONE (15:26)
[2019-10-04] MEDS ORDERED: IV FLUID CONTINUATION 700 ML IV ONE (15:50)
--- NOTE | 2019-10-04 16:03 | P.PCN ---
Date of Procedure: 10/04/19 Description of Procedure: BRIEF HISTORY: 74-year-old male with multiple medical comorbidities including diagnosis of pancreatic cancer status post Whipple in 2012 with patient reporting that he receive chemotherapy and radiation therapy at that time, as well as prior history of peptic ulcer disease who presented to the hospital with intractable nausea and vomiting. He reports intermittently suffering symptoms of intractable nausea and vomiting since his surgery. He reports this is usually treated with pain control and fluid hydration and the patient is able to be discharged. On current presentation he reports multiple episodes of coffee- ground emesis with concern for GI bleed. Hemoglobin stable at 13.7 on presentation subsequently found to be 11.8, and 11.0 today. He denies any NSAID use at home. He does report prior history of peptic ulcer disease found on EGD several years ago. He also reports multiple endoscopies in the past. He denies any melanotic stool. No further nausea or vomiting after presentation. Computed tomography scan of the abdomen was concerning for gastric distention and all thickening concerning for peptic ulcer disease as well as other findings. PROCEDURE PERFORMED: Esophagogastroduodenoscopy with biopsy. PREOPERATIVE DIAGNOSIS: Coffee-ground emesis, hematemesis, intractable nausea and vomiting, abnormal computed tomography scan abdomen. ESTIMATED BLOOD LOSS: Minimal. IV sedation per anesthesia. PROCEDURE: After informed consent was obtained, the patient was brought into the endoscopy unit. IV sedation was administered by Anesthesia under continuous monitoring. Initially the Olympus GIF-190 video endoscope was inserted into the mouth. Esophagus intubated without any difficulty. It was gradually advanced into the stomach and into the small bowel and carefully examined. The patient's anatomy was consistent with primary Whipple surgery with tissue of the small bowel appeared normal. The scope at this time was withdrawn to the stomach, adequately insufflated with air, and upon careful examination, mucosa of the antrum, body, cardia and the fundus appeared grossly normal. There was however some erythema and thickening of the folds of the body of the stomach consistent with mild gastritis with biopsies taken. The scope was then withdrawn into the esophagus. The GE junction was located at 42 cm from the incisors. The esophagus appeared normal. There were no erosions or ulcerations seen and the patient t olerated the procedure well. IMPRESSION: 1. No active bleeding, or old blood noted. 2. Mild gastritis of the body of the stomach with some thickening of the gastric folds, biopsied. RECOMMENDATIONS: The findings of this examination were discussed with the patient. Okay to resume diet. Continue Protonix 40 mg daily. Okay for discharge from gastroenterology when otherwise stable.
--- NOTE | 2019-10-05 00:56 | DS ---
DISCHARGE SUMMARY DATE OF SERVICE: 10/04/2019. FINAL DIAGNOSES: 1. Intractable nausea and vomiting, diarrhea with possible acute gastroenteritis and possible upper gastrointestinal bleeding with possibly secondary to acute gastritis. 2. Status post EGD. 3. Increased creatinine with acute renal failure with possible acute tubular necrosis with prerenal factors present on admission secondary to dehydration. 4. History of pancreatic cancer with Whipple procedure in 2013. 5. History of pneumobilia in the CT scan of the abdomen, stable. 6. L1 compression fracture. 7. Possible osteonecrosis of the femur on the CT scan. 8. Severe protein calorie malnutrition with body mass index 16.4. 9. History of nicotine dependence with THC. 10.FULL CODE. DISCHARGE DISPOSITION: The patient will be discharged in stable condition with guarded prognosis. HISTORY OF PRESENT ILLNESS: This 74-year-old gentleman with a past medical history of multiple medical problems was admitted with intractable nausea and vomiting, and the patient treated symptomatically. Patient had EGD showed gastritis. Hemoglobin is 11 and creatinine stable at 1.37. The patient improved significantly. On exam, vitals are stable. Cardiovascular: S1, S2. Abdomen soft. Nervous system: No focal deficits. DISCHARGE ADVICE AND MEDICATIONS: 1. Diet is cardiac diet. 2. Activity limited until followup. 3. Follow up with the [facility] in 2-3 days. 4. Follow up with Dr. Daly as recommended. DISCHARGE MEDICATIONS: 1. Creon 1 capsule as before. 2. Effexor XR 150 mg p.o. daily. 3. Lamictal 200 mg p.o. daily. 4. Lidocaine patch daily. 5. Lioresal 10 mg t.i.d. p.r.n. 6. Morphine sulfate 50 mg q6h p.r.n. 7. Prazosin 4 mg q.h.s. 8. Sildenafil 100 mg p.o. daily. 9. Protonix 40 mg p.o. daily. 10.Zofran 4 mg p.o. q.8 p.r.n. Once again the patient being discharged in stable condition with guarded prognosis. MMODL / IJN: [id number] /
== END 2019-10-04 17:35 | disposition home or self-care (01) | DRG 377 ==
LOC: EC 11:55 → 4SSUR 14:40 → 5NMEDONC 18:31 → OBSVTOIN 10-03 11:25
PROVIDERS: ADMIT Hospitalist; ATTEND Hospitalist
PROC: 0DB68ZX Excision of Stomach, Via Natural or Artificial Opening Endoscopic, Diagnostic (ICD-10-PCS; principal; 2019-10-04 14:30)
DX: K29.71 Gastritis, unspecified, with bleeding (principal); E43 Unspecified severe protein-calorie malnutrition; N17.0 Acute kidney failure with tubular necrosis; Z68.1 Body mass index [BMI] 19.9 or less, adult; M48.56XA Collapsed vertebra, not elsewhere classified, lumbar region, initial encounter for fracture; M87.851 Other osteonecrosis, right femur; M87.852 Other osteonecrosis, left femur; E86.0 Dehydration; F17.200 Nicotine dependence, unspecified, uncomplicated; F43.10 Post-traumatic stress disorder, unspecified; Z88.5 Allergy status to narcotic agent; Z88.0 Allergy status to penicillin; Z85.07 Personal history of malignant neoplasm of pancreas; Z87.11 Personal history of peptic ulcer disease; Z90.411 Acquired partial absence of pancreas; Z81.8 Family history of other mental and behavioral disorders; Z80.0 Family history of malignant neoplasm of digestive organs; Z90.49 Acquired absence of other specified parts of digestive tract; Z98.890 Other specified postprocedural states; Z79.899 Other long term (current) drug therapy
CPT/HCPCS: 36415; 43239; 74176; 80048; 80053; 80306; 81003; 82150; 83605; 83690; 85025; 85610; 85730; 86850; 86900; 86901; 93005; 96361; 96374; 96375; 99285

== ENCOUNTER 2020-08-09 15:40 | Observation (INO) | payer OTHER, MEDICARE ==
[2020-08-09] MEDS ORDERED: SODIUM CHLORIDE 0.9% 1,000 ML IV STA ×2 (15:46→16:12)
--- NOTE | 2020-08-09 15:48 | ED ---
Altered Mental Status HPI - General Stated Complaint: Altered Mental Status Time Seen by Provider: 08/09/20 15:45 Source: RN notes reviewed, old records reviewed Mode of arrival: EMS Limitations: no limitations - History of Present Illness Initial Comments: This is a 75-year-old male to the ER for evaluation patient for evaluation of altered mental status weakness, history of cancer unable to give history secondary to altered mental status patient unable to give history. MD Complaint: altered mental status, confusion -: days(s) Severity: moderate Consistency of Symptoms: waxing and waning Context: alcohol abuse Associated Symptoms: denies other symptoms Treatments Prior to Arrival: IV fluid - Related Data Home Medications Medication Instructions Recorded Confirmed Baclofen [Lioresal] 10 mg PO TID PRN 10/02/19 08/09/20 Lipase/Protease/Amylase [Katina Pope 120,000 units PO ACHS 10/02/19 08/09/20 24,000 Units Capsule] Prazosin HCl 4 mg PO HS 10/02/19 08/09/20 lamoTRIgine [LaMICtal] 200 mg PO DAILY 10/02/19 08/09/20 Dicyclomine [Bentyl] 20 mg PO QID 08/09/20 08/09/20 Sennosides [Senna] 17.2 mg PO HS 08/09/20 08/09/20 Venlafaxine HCl [Effexor] 225 mg PO DAILY 08/09/20 08/09/20 Previous Rx's Medication Instructions Recorded Pantoprazole Sodium [Protonix] 40 mg PO DAILY #30 tablet. 10/04/19 Allergies Allergy/AdvReac Type Severity Reaction Status Date / Time codeine Allergy Swelling Verified 08/09/20 17:11 hydromorphone [From Dilaudid] Allergy Swelling Verified 08/09/20 17:11 Penicillins Allergy Swelling Verified 08/09/20 17:11 Review of Systems ROS Statement: Those systems with pertinent positive or pertinent negative responses have been documented in the HPI. ROS Other: All systems not noted in ROS Statement are negative. Past Medical History Past Medical History: Cancer Additional Past Medical History / Comment(s): Pancreatic CA, hernia, History of Any Multi-Drug Resistant Organisms: None Reported Past Surgical History: Cholecystectomy, Hernia Repair Additional Past Surgical History / Comment(s): Whipple surgery Past Anesthesia/Blood Transfusion Reactions: Previous Problems w/ Anesthesia Additional Past Anesthesia/Blood Transfusion Reaction / Comment(s): Aggression and agitation post op. Past Psychological History: Anxiety, Depression, PTSD Additional Psychological History / Comment(s): Mood swings, Past Alcohol Use History: Occasional Additional Past Alcohol Use History / Comment(s): 1/2 PPD. Drinks occassionally 2 beers Past Drug Use History: Marijuana Additional Drug Use History / Comment(s): Daily at night to help sleep. - Past Family History Mother Additional Family Medical History / Comment(s): Schizophrenia Father Family Medical History: Cancer Additional Family Medical History / Comment(s): Colon cancer, since passed. General Exam Limitations: altered mental status General appearance: alert, cachectic Head exam: Present: atraumatic, normocephalic, normal inspection Eye exam: Present: normal appearance, PERRL, EOMI. Absent: scleral icterus, conjunctival injection, periorbital swelling ENT exam: Present: normal exam, mucous membranes dry Neck exam: Present: normal inspection. Absent: tenderness, meningismus, lymphadenopathy Respiratory exam: Present: normal lung sounds bilaterally. Absent: respiratory distress, wheezes, rales, rhonchi, stridor Cardiovascular Exam: Present: regular rate, normal rhythm, normal heart sounds. Absent: systolic murmur, diastolic murmur, rubs, gallop, clicks GI/Abdominal exam: Present: soft, normal bowel sounds. Absent: distended, tenderness, guarding, rebound, rigid Extremities exam: Present: normal inspection, full ROM, normal capillary refill. Absent: tenderness, pedal edema, joint swelling, calf tenderness Back exam: Present: normal inspection Neurological exam: Present: alert, oriented X3, CN II-XII intact Psychiatric exam: Present: normal affect, normal mood Skin exam: Present: warm, dry, intact, normal color. Absent: rash Course Vital Signs 08/09/20 08/09/20 08/09/20 15:41 16:08 16:35 Temperature 97.9 F Pulse Rate 90 84 98 Respiratory 18 16 16 Rate Blood Pressure 85/58 135/102 123/77 O2 Sat by Pulse 100 100 100 Oximetry 08/09/20 16:51 Temperature Pulse Rate 92 Respiratory 16 Rate Blood Pressure 121/71 O2 Sat by Pulse 100 Oximetry - Reevaluation(s) Reevaluation #1: 08/09/20 15:59 medical records reviewed Reevaluation #2: 08/09/20 17:57 patient informed results and questions answered - Consultations Consultation #1: spoke with [facility] regarding admission, they are agreeable Medical Decision Making - Medical Decision Making 75 female to the ER for evaluation patient presents today for evaluation regards to severe weakness dehydration and cancer. Patient will be admitted Thursday hydration continued evaluation and treatment - Lab Data Result diagrams: 08/09/20 15:54 08/09/20 15:54 Lab Results 08/09/20 08/09/20 08/09/20 Range/Units 15:54 15:54 15:54 WBC 8.4 (3.8-10.6) k/uL RBC 3.09 L (4.30-5.90) m/uL Hgb 8.9 L (13.0-17.5) gm/dL Hct 30.5 L (39.0-53.0) % MCV 98.7 (80.0-100.0) fL MCH 28.7 (25.0-35.0) pg MCHC 29.0 L (31.0-37.0) g/dL RDW 15.7 H (11.5-15.5) % Plt Count 275 (150-450) k/uL Neutrophils % (Manual) 74 % Band Neuts % (Manual) 5 % Lymphocytes % (Manual) 14 % Monocytes % (Manual) 7 % Neutrophils # (Manual) 6.60 (1.3-7.7) k/uL Lymphocytes # (Manual) 1.18 (1.0-4.8) k/uL Monocytes # (Manual) 0.59 (0-1.0) k/uL Nucleated RBCs 0 (0-0) /100 WBC Manual Slide Review Performed Hypochromasia Marked Macrocytosis Slight PT (9.0-12.0) sec INR (<1.2) APTT (22.0-30.0) sec Sodium 136 L (137-145) mmol/L Potassium 4.9 (3.5-5.1) mmol/L Chloride 109 H (98-107) mmol/L Carbon Dioxide 17 L (22-30) mmol/L Anion Gap 10 mmol/L BUN 19 (9-20) mg/dL Creatinine 1.18 (0.66-1.25) mg/dL Est GFR (CKD-EPI)AfAm 70 (>60 ml/min/1.73 sqM) Est GFR (CKD-EPI)NonAf 61 (>60 ml/min/1.73 sqM) Glucose 177 H (74-99) mg/dL Plasma Lactic Acid Darian 6.3 H* (0.7-2.0) mmol/L Calcium 7.9 L (8.4-10.2) mg/dL Phosphorus 4.4 (2.5-4.5) mg/dL Magnesium 2.1 (1.6-2.3) mg/dL Total Bilirubin 0.4 (0.2-1.3) mg/dL AST 34 (17-59) U/L ALT 20 (4-49) U/L Alkaline Phosphatase 207 H (38-126) U/L Ammonia <9 (<30) umol/L Creatine Kinase 72 (55-170) U/L Troponin I (0.000-0.034) ng/mL Total Protein 5.1 L (6.3-8.2) g/dL Albumin 2.4 L (3.5-5.0) g/dL Salicylates <1.0 mg/dL Acetaminophen <10.0 ug/mL 08/09/20 08/09/20 Range/Units 15:54 15:54 WBC (3.8-10.6) k/uL RBC (4.30-5.90) m/uL Hgb (13.0-17.5) gm/dL Hct (39.0-53.0) % MCV (80.0-100.0) fL MCH (25.0-35.0) pg MCHC (31.0-37.0) g/dL RDW (11.5-15.5) % Plt Count (150-450) k/uL Neutrophils % (Manual) % Band Neuts % (Manual) % Lymphocytes % (Manual) % Monocytes % (Manual) % Neutrophils # (Manual) (1.3-7.7) k/uL Lymphocytes # (Manual) (1.0-4.8) k/uL Monocytes # (Manual) (0-1.0) k/uL Nucleated RBCs (0-0) /100 WBC Manual Slide Review Hypochromasia Macrocytosis PT 11.9 (9.0-12.0) sec INR 1.2 H (<1.2) APTT 20.7 L (22.0-30.0) sec Sodium (137-145) mmol/L Potassium (3.5-5.1) mmol/L Chloride (98-107) mmol/L Carbon Dioxide (22-30) mmol/L Anion Gap mmol/L BUN (9-20) mg/dL Creatinine (0.66-1.25) mg/dL Est GFR (CKD-EPI)AfAm (>60 ml/min/1.73 sqM) Est GFR (CKD-EPI)NonAf (>60 ml/min/1.73 sqM) Glucose (74-99) mg/dL Plasma Lactic Acid Darian (0.7-2.0) mmol/L Calcium (8.4-10.2) mg/dL Phosphorus (2.5-4.5) mg/dL Magnesium (1.6-2.3) mg/dL Total Bilirubin (0.2-1.3) mg/dL AST (17-59) U/L ALT (4-49) U/L Alkaline Phosphatase (38-126) U/L Ammonia (<30) umol/L Creatine Kinase (55-170) U/L Troponin I <0.012 (0.000-0.034) ng/mL Total Protein (6.3-8.2) g/dL Albumin (3.5-5.0) g/dL Salicylates mg/dL Acetaminophen ug/mL - EKG Data -: EKG Interpreted by Me (EKG is sinus tachycardia 103 MD 112/76 QTC 460) - Radiology Data Radiology results: report reviewed (CT brain is negative for acute disease), image reviewed Disposition Clinical Impression: Intractable nausea and vomiting, Altered mental status, History of pancreatic cancer, Weakness, Lactic acidosis Disposition: ADMITTED IP TO THIS HOSP Condition: Serious Is patient prescribed a controlled substance at d/c from ED?: No Referrals: [facility],Clinic [Primary Care Provider] - 1-2 days
[2020-08-09 16:11] VITALS: RESP 16
[2020-08-09 16:11] LABS: HCT 30.5 % (39.0-53.0); HGB 8.9 gm/dL (13.0-17.5); Hypochromasia Marked; MCH 28.7 pg (25.0-35.0); MCV 98.7 fL (80.0-100.0); Macrocytosis Slight; Mean Platelet Volume 7.4; Platelet Count 275 k/uL (150-450); RBC 3.09 m/uL (4.30-5.90); RDW 15.7 % (11.5-15.5); WBC 8.4 k/uL (3.8-10.6)
[2020-08-09 16:19] LABS: ALT 20 U/L (4-49); AST 34 U/L (17-59); Acetaminophen <10.0 ug/mL; African American GFR (CKD) 70 (>60 ml/min/1.73 sqM); Albumin 2.4 g/dL (3.5-5.0); Alkaline Phosphatase 207 U/L (38-126); Anion Gap 10 mmol/L; Blood Urea Nitrogen 19 mg/dL (9-20); Calcium 7.9 mg/dL (8.4-10.2); Carbon Dioxide 17 mmol/L (22-30); Chloride 109 mmol/L (98-107); Creatine Kinase 72 U/L (55-170); Glucose 177 mg/dL (74-99); INR 1.2 (<1.2); Magnesium 2.1 mg/dL (1.6-2.3); Non-African American GFR(CKD) 61 (>60 ml/min/1.73 sqM); Phosphorus 4.4 mg/dL (2.5-4.5); Potassium 4.9 mmol/L (3.5-5.1); Prothrombin Time 11.9 sec (9.0-12.0); Salicylate <1.0 mg/dL; Sodium 136 mmol/L (137-145); Total Bilirubin 0.4 mg/dL (0.2-1.3); Total Protein 5.1 g/dL (6.3-8.2)
[2020-08-09 16:21] LABS: Lactic Acid, Venous 6.3 mmol/L (0.7-2.0)
[2020-08-09 16:25] LABS: Partial Thromboplastin Time 20.7 sec (22.0-30.0)
[2020-08-09 16:33] LABS: Band Neutrophils % 5 %; Lymphocytes # (M) 1.18 k/uL (1.0-4.8); Monocytes # (M) 0.59 k/uL (0-1.0); Neutrophils % (M) 74 %; Nucleated Red Blood Cells 0 /100 WBC (0-0); Total Cells Counted 100
--- NOTE | 2020-08-09 16:40 | CT ---
EXAMINATION TYPE: CT brain wo con DATE OF EXAM: 08/09/2020 COMPARISON: None HISTORY: 75-year-old male Weakness. TECHNIQUE: Examination was done in axial plane without intravenous contrast. Coronal and sagittal r econstructions performed. CT DLP: 1095.4 mGycm Automated exposure control for dose reduction was used. FINDINGS: There is no evidence of acute intracranial hemorrhage, acute ischemic changes, mass, mass-effect, or extra-axial fluid collection. There is no effacement of cerebral sulci or basal subarachnoid cister ns. There is no hydrocephalus. There is no midline shift. [place]-white matter distinction is preserv ed. Very mild patchy white matter hypodensities in the cerebral hemispheres compatible with minimal burde n of chronic small vessel ischemic disease. Some focal dystrophic calcification along the anterior fa lx. Trace mucosal thickening right maxillary sinus. Some trapped fluid within the left mastoid air cells. Orbits and globes are intact. IMPRESSION: No acute intracranial abnormality seen.
[2020-08-09] MEDS ORDERED: EPINEPHrine 10 ML SYRINGE (0.1 MG/ML) ONE (20:49)
--- NOTE | 2020-08-09 21:22 | P.PN ---
Progress Note - Text Progress Note Date: 08/09/20 Code Antonio Team note Code antonio activated @ 2048. Arrived on the scene shortly after. Discussed the case with the RN in detail. Noted that the patient was admitted for altered mental status and dehydration. As per the RN, the patient appeared to be pale and confused. He became progressively more pale and proceeded to have an episode of hematemsis and lost his pulse. The staff at the bedside immediately started CPR. Upon arrival at the scene, the patient was undergoing CPR and had a large amount of dark bloody vomitus that was being suctioned. He was noted to be in PEA and was given 1 IVP epinephrine and was shocked with 200 J once. The patient's next of- kin was contacted via phone (Janeth Padilla [phone]). She noted that her had not wanted to be on life-support or undergo CPR. She reported that he had expressed these wishes to her and their daughter on multiple occasions. She also noted that their daughter was by her side and agreed with stopping CPR as "that he would have wanted to go peacefully". CPR was subsequently stopped with time of 2054 on 08/09. Consoled the and answered questions. Primary team was notified.
[2020-08-09 22:27] VITALS: BP 140/90; PULSE 89; TEMP 98.1
--- NOTE | 2020-08-10 12:03 | P.HPIM ---
History of Present Illness 75-year-old male was admitted for dehydration, nausea vomiting secondary to pancreatic cancer patient had lactic acidosis as wellfrom dehydration. Patient was admitted for IV hydration. Subsequently patient had a cardiopulmonary arrest resuscitation was started, which was subsequently stopped as per the family request. Patient yesterday please refer to documentation from the physician who ran the code for further details. Past Medical History Past Medical History: Cancer Additional Past Medical History / Comment(s): Pancreatic CA, hernia, History of Any Multi-Drug Resistant Organisms: None Reported Past Surgical History: Cholecystectomy, Hernia Repair Additional Past Surgical History / Comment(s): Whipple surgery Past Anesthesia/Blood Transfusion Reactions: Previous Problems w/ Anesthesia Additional Past Anesthesia/Blood Transfusion Reaction / Comment(s): Aggression and agitation post op. Past Psychological History: Anxiety, Depression, PTSD Additional Psychological History / Comment(s): Mood swings, Past Alcohol Use History: Occasional Additional Past Alcohol Use History / Comment(s): 1/2 PPD. Drinks occassionally 2 beers Past Drug Use History: Marijuana Additional Drug Use History / Comment(s): Daily at night to help sleep. - Past Family History Mother Additional Family Medical History / Comment(s): Schizophrenia Father Family Medical History: Cancer Additional Family Medical History / Comment(s): Colon cancer, since passed. Medications and Allergies Home Medications Medication Instructions Recorded Confirmed Type Baclofen [Lioresal] 10 mg PO TID PRN 10/02/19 08/09/20 History Lipase/Protease/Amylase [Katina Pope 120,000 units PO ACHS 10/02/19 08/09/20 History 24,000 Units Capsule] Prazosin HCl 4 mg PO HS 10/02/19 08/09/20 History lamoTRIgine [LaMICtal] 200 mg PO DAILY 10/02/19 08/09/20 History Pantoprazole Sodium [Protonix] 40 mg PO DAILY #30 tablet. 10/04/19 08/09/20 Rx Dicyclomine [Bentyl] 20 mg PO QID 08/09/20 08/09/20 History Sennosides [Senna] 17.2 mg PO HS 08/09/20 08/09/20 History Venlafaxine HCl [Effexor] 225 mg PO DAILY 08/09/20 08/09/20 History Allergies Allergy/AdvReac Type Severity Reaction Status Date / Time codeine Allergy Swelling Verified 08/09/20 17:11 hydromorphone [From Dilaudid] Allergy Swelling Verified 08/09/20 17:11 Penicillins Allergy Swelling Verified 08/09/20 17:11 Physical Exam Vitals: Vital Signs Temp Pulse Pulse Resp BP BP Pulse Ox 08/09/20 20:25 98.1 F 89 140/90 100 08/09/20 18:34 83 16 131/86 100 08/09/20 16:51 92 16 121/71 100 08/09/20 16:35 97.9 F 98 16 123/77 100 08/09/20 16:08 84 16 135/102 100 08/09/20 15:41 90 18 85/58 100 Intake and Output 08/09/20 08/10/20 08/10/20 22:59 06:59 14:59 Other: Weight 44.906 kg Results CBC & Chem 7: 08/09/20 15:54 08/09/20 15:54 Labs: Abnormal Lab Results - Last 24 Hours (Table) 08/09/20 08/09/20 08/09/20 Range/Units 15:54 15:54 15:54 RBC 3.09 L (4.30-5.90) m/uL Hgb 8.9 L (13.0-17.5) gm/dL Hct 30.5 L (39.0-53.0) % MCHC 29.0 L (31.0-37.0) g/dL RDW 15.7 H (11.5-15.5) % INR (<1.2) APTT (22.0-30.0) sec Sodium 136 L (137-145) mmol/L Chloride 109 H (98-107) mmol/L Carbon Dioxide 17 L (22-30) mmol/L Glucose 177 H (74-99) mg/dL Plasma Lactic Acid Darian 6.3 H* (0.7-2.0) mmol/L Calcium 7.9 L (8.4-10.2) mg/dL Alkaline Phosphatase 207 H (38-126) U/L Total Protein 5.1 L (6.3-8.2) g/dL Albumin 2.4 L (3.5-5.0) g/dL 11/05/20 11/05/20 Range/Units 15:54 19:59 RBC (4.30-5.90) m/uL Hgb (13.0-17.5) gm/dL Hct (39.0-53.0) % MCHC (31.0-37.0) g/dL RDW (11.5-15.5) % INR 1.2 H (<1.2) APTT 20.7 L (22.0-30.0) sec Sodium (137-145) mmol/L Chloride (98-107) mmol/L Carbon Dioxide (22-30) mmol/L Glucose (74-99) mg/dL Plasma Lactic Acid Darian 2.2 H* (0.7-2.0) mmol/L Calcium (8.4-10.2) mg/dL Alkaline Phosphatase (38-126) U/L Total Protein (6.3-8.2) g/dL Albumin (3.5-5.0) g/dL
--- NOTE | 2020-08-10 12:04 | P.DS ---
Providers Date of admission: 08/09/20 18:18 Attending physician: Coleen Monae Consults: 08/09/20 17:56 Consult Physician Routine Consulting Provider: Justino Shine Consult Reason/Comments: weak Do you want consulting provider notified?: Yes Primary care physician: [facility] Hospital Course: refer to HPI for further details Patient Condition at Discharge: Serious Plan - Discharge Summary New Discharge Prescriptions: No Action Prazosin HCl 4 mg PO HS lamoTRIgine [LaMICtal] 200 mg PO DAILY Lipase/Protease/Amylase [Katina Pope 24,000 Units Capsule] 120,000 units PO ACHS Baclofen [Lioresal] 10 mg PO TID PRN PRN Reason: Muscle Spasm Pantoprazole Sodium [Protonix] 40 mg PO DAILY #30 tablet. Dicyclomine [Bentyl] 20 mg PO QID Venlafaxine HCl [Effexor] 225 mg PO DAILY Sennosides [Senna] 17.2 mg PO HS Discharge Medication List Baclofen [Lioresal] 10 mg PO TID PRN 10/02/19 [History] Lipase/Protease/Amylase [Katina Pope 24,000 Units Capsule] 120,000 units PO ACHS 10/02/19 [History] Prazosin HCl 4 mg PO HS 10/02/19 [History] lamoTRIgine [LaMICtal] 200 mg PO DAILY 10/02/19 [History] Pantoprazole Sodium [Protonix] 40 mg PO DAILY #30 tablet. 10/04/19 [Rx] Dicyclomine [Bentyl] 20 mg PO QID 08/09/20 [History] Sennosides [Senna] 17.2 mg PO HS 08/09/20 [History] Venlafaxine HCl [Effexor] 225 mg PO DAILY 08/09/20 [History] Follow up Appointment(s)/Referral(s): [facility] [Primary Care Provider] - 1-2 days Discharge Disposition: - Preliminary Cause of Preliminary Cause of : pancreatic cancer
== END 2020-08-09 20:55 | disposition expired ==
LOC: EC 15:40 → 3NCARDOBS 18:18
PROVIDERS: ADMIT Hospitalist; ATTEND Hospitalist
DX: E86.0 Dehydration (principal); C25.9 Malignant neoplasm of pancreas, unspecified; E87.2 Acidosis; F10.10 Alcohol abuse, uncomplicated; F32.9 Major depressive disorder, single episode, unspecified; F43.10 Post-traumatic stress disorder, unspecified; I46.9 Cardiac arrest, cause unspecified; Z79.899 Other long term (current) drug therapy; Z80.0 Family history of malignant neoplasm of digestive organs; R11.2 Nausea with vomiting, unspecified; R53.1 Weakness
CPT/HCPCS: 96360; 96361; 99285; 36415; 93005; 80053; 82140; 82550; 83605; 83735; 84100; 84484; 85025; 85610; 85730; 83520; 80329; 70450; G0378 ×2; J0171